=== PATIENT | male | born 1930 | race Caucasian/White ===

== ENCOUNTER 2018-07-19 15:48 | Inpatient (IN) | payer OTHER ==
[~2018-07-19] VITALS: Ht 177.8 cm; Wt 86.2 kg
[2018-07-19 15:50] VITALS: BP 154/65
[2018-07-19 19:16] LABS: ABSOLUTE NEUTROPHILS 4.7 thou/uL (1.4-8.2); BASOPHILS 0.4 % (0.0-2.0); EOSINOPHILS 3.1 % (0.0-3.0); HEMATOCRIT 40.3 % (42.0-52.0); HEMOGLOBIN 13.8 gm/dL (14.0-18.0); LYMPHOCYTES 17.1 % (24.0-44.0); MCH 31.6 pg (26.0-34.0); MCHC 34.2 g/dL (28.0-37.0); MCV 92.5 fL (80.0-100.0); MONOCYTES 10.8 % (1.0-8.0); PLATELET COUNT 210 thou/uL (150-400); POLYS 68.6 % (36.0-66.0); RBC 4.36 mil/uL (4.50-6.00); RDW 13.7 % (10.5-14.5); WBC 6.9 thou/uL (4.0-11.0)
[2018-07-19 19:24] LABS: CALCIUM 9.8 mg/dL (8.5-10.1); CREATININE 1.1 mg/dL (0.7-1.3); POTASSIUM 3.4 mmol/L (3.5-5.1)
[2018-07-19 19:29] LABS: ALBUMIN 3.9 g/dL (3.4-5.0); APTT 27.8 Seconds (24.5-32.8); PROTIME 10.7 Seconds (9.3-11.4); TOTAL PROTEIN 7.7 g/dL (6.4-8.2)
[2018-07-19 20:33] VITALS: BP 136/61
[2018-07-19 20:50] VITALS: BP 139/71
[2018-07-19 21:20] VITALS: BP 184/76
[2018-07-20 00:50] VITALS: BP 155/75
[2018-07-20 04:32] VITALS: BP 139/65
[2018-07-20 08:24] VITALS: BP 119/63
--- NOTE | 2018-07-20 08:24 | EKG ---
[address] [address] ELECTROCARDIOGRAM REPORT Name: EDIE PORTER Room #: 458-P ADM IN M.R.#: [id number] ������������������ Admission: 07/19/18 ������������������ Attend Phys: Belen Gillis Discharge: ������������������ Date of : 31 Report #: [id number] ����������������������������������������������������������������� [id number] THIS REPORT FOR: //name// [facility] ED Test Date: 2018-07-19 Test Time: 19:15:20 Pat Name: EDIE PORTER Department: Room: 458 Gender: M Recruitment Consultant: rizwana : 1930 Requested By: Jie Bah Order Number: [id number] MD: Masoud Noble Measurements Intervals Ballinger Rate: 60 P: -15 SD: 119 QRS: -37 QRSD: 108 T: 42 QT: 459 QTc: 459 Interpretive Statements Sinus rhythm with PACs Atrial premature complex Borderline short SD interval Compared to ECG 11/07/2005 11:44:14 Electronically Signed On 07-20-2018 8:24:20 CDT by Masoud Noble [email or web address] ��������������������������������������������� <ELECTRONICALLY SIGNED> ���������������������������������������� By: Masoud Noble MD ��������������������������������������������� 07/20/1824 14 14 Masoud Noble MD /EPI
--- NOTE | 2018-07-20 12:21 | NUR ---
PT ADMITTED RELATED TO RT HIP GR. TROCH FX WITH POSSIBLE FEM NECK FX. CM REVIEWED CHART AND SPOKE WITH CARE TEAM. CM MET WITH PT AT BEDSIDE THIS DAY. PT IS A&O X4. CM ROLE INTRODUCED. PT INDICATED HE LIVES IN A HOUSE WITH HIS SPOUSE WITH 2 STEPS TO ENTER AND 15 STEPS INSIDE. 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 PT INDICATED NO DME OR HH HX. PT INDICATED HE HAD BEEN FOR OP PT IN THE PAST. PT AWAITING ORTHO EVAL TO DETERMINE PLAN OF CARE. CM TO FOLLOW INDICATED WITH DC PLANNING.
--- NOTE | 2018-07-20 13:32 | H ---
[facility] [place] [address] HISTORY AND PHYSICAL Name: CHARLOTTEIRIZARRY R Room #: 458-P ADM IN M.R.#: [id number] Admission: 07/19/18 ������������������ Attend Phys: Belen Gillis Discharge: ������������������ Date of : 31 Report #: [id number] THIS REPORT FOR: //name// CC: Moo Trevino DATE OF SERVICE: 07/19/2018 CHIEF COMPLAINT: Fall and right hip pain. HISTORY OF PRESENT ILLNESS: The patient is an 87-year-old gentleman who was brought to the Emergency Room after an accidental fall yesterday afternoon. He apparently was walking out of his office in a hurry when he tripped on a rug and landed on his right side. He required help to get up and was unable to walk or stand due to pain. There was also report of a fall 2 weeks ago while he was doing some housework, but he treated that symptomatically with a heating pad. X-rays through the ER revealed a right greater trochanter femur fracture with some extension into the intertrochanteric region of the proximal femur. PAST MEDICAL HISTORY: None. PAST SURGICAL HISTORY: None. FAMILY HISTORY: Noncontributory. SOCIAL HISTORY: Prior tobacco use. He does admit to drinking a few ounces of alcohol daily. ALLERGIES: None. MEDICATIONS: None. REVIEW OF SYSTEMS: Denies headache, chest pain, shortness of breath, abdominal pain, nausea, vomiting, diarrhea, constipation, dysuria. PHYSICAL EXAMINATION: VITAL SIGNS: Temperature 36.6, pulse 69, respirations 16, blood pressure 119/63, O2 sat 97% on 2 liters. GENERAL: He is awake and alert, in no distress. LUNGS: Clear. HEART: Regular. ABDOMEN: Soft, normoactive bowel sounds. EXTREMITIES: No edema. There is no bruising at the right hip. He has pain with movement. NEUROLOGIC: Cranial nerves intact. Speech is fluent. He is alert and oriented. [facility] [address] [place] [address] HISTORY AND PHYSICAL Name: EDIE PORTER Room #: 458-P [facility] IN ..#: [id number] Admission: 07/19/18 ������������������ Attend Phys: Belen Gillis Discharge: ������������������ Date of : 31 Report #: [id number] X-ray of the pelvis reveals a nondisplaced fracture through the right greater trochanter of the proximal femur with extension into the base of the femoral neck. Chest x-ray and lab work were unremarkable. ASSESSMENT: 1. Right greater trochanter femur fracture with extension into the femoral neck. 2. Accidental fall. 3. Inability to ambulate. PLAN: Consult orthopedic service to review his status and see if this can be managed nonoperatively. He may require some rehabilitation efforts as well. ��������������������������������������������� <ELECTRONICALLY SIGNED> ���������������������������������������� By: Reginaldo Prakash MD ��������������������������������������������� 07/20/18 1332 1057 [id number] Reginaldo Prakash MD /anel
--- NOTE | 2018-07-20 15:45 | NUR ---
PT WAS SEEN BY [facility], AND SKILLED CARE FOLLOWING ORTHO AND SURGICAL INTERVENTIONS WAS RECOMMENDED. THANK YOU FOR THIS REFERRAL.
[2018-07-20 16:08] VITALS: BP 114/56
--- NOTE | 2018-07-20 16:16 | NUR ---
ASSUMED CARE OF PT APPROX 0715, A&0X4, INITIALLY WANTED TO BE D/C'D SO THAT HE CAN KEEP UP WITH HIS APPTS, SPOUSE HAS MRI SCHEDULED FOR MONDAY, ETC. THEN AFTER MRI AND PT SASCHA HAS BECOME ANXIOUS ABOUT ENSURING DR TORRES KNOWS HE WANTS SURGERY YET ALSO WANTS THE PHYSICIAN TO CALL HIM ON HIS ROOM PHONE NUMBER. LEFT A MESSAGE W/SASKIA, PHYSICIAN'S NURSE, WITH THIS INFORMATION AT 1615. FAMILY AT BEDSIDE, DAUGHTER WROTE PT'S SON'S TELE NUMBER ON BOARD (HE'S A PHYSICIAN), SHE ASKED THAT DR. TORRES CALL HIM YET THE PT IS ADAMANT THAT HE BE CALLED HIMSELF. FED ALL AND ENCOURAGED THEM TO USE CALL LIGHT FOR ANY NEEDS
[2018-07-20 20:34] VITALS: BP 120/60
--- NOTE | 2018-07-21 02:36 | NUR ---
PROGRESS PT PROGRESSING, HAD A CHANGE OF MIND AND WANTS TO HAVE SURGERY. FAMILY AT BEDSIDE SON IS A PHYSICIAN AT THE [employer] AND WANTED TO SPEAK TO . I CALLED ANSWERING SERVICE REQUESTING A RETURN CALL TO PT'S SON DR. CHARAN PORTER. CALL PLACED ORDER FROM TO WRITE FOR CONSENT AND MAKE PT NPO AFTER MN.
[2018-07-21 04:33] VITALS: BP 129/66
--- NOTE | 2018-07-21 06:42 | NUR ---
PATIENT SLEPT PART OF THE NIGHT. PATIENT WAS NPO SINCE MN FOR POSSIBLE SURGERY. PT ORDERED. NO OTHER CONCERNS FOR THIS PATIENT AT THIS MOMENT. PATIENT IS PROGRESSING TOWARDS DC GOALS.
[2018-07-21 07:20] VITALS: BP 163/43
[2018-07-21 07:30] VITALS: BP 140/75
--- NOTE | 2018-07-21 07:37 | HC ---
[facility] [place] [address] CONSULTATION Name: CHARLOTTEIRIZARRY R Room #: 458-P ADM IN M.R.#: [id number] Admission: 07/19/18 ������������������ Attend Phys: Belen Gillis Discharge: ������������������ Date of : 31 Report #: [id number] THIS REPORT FOR: //name// CC: Moo Trevino DATE OF SERVICE: 07/20/2018 CHIEF COMPLAINT: Right hip fracture. 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 He stumbled and fell injuring the right hip. He was unable to ambulate and was evaluated here in the Emergency Department. X-rays reveal a rather minimal slightly displaced fracture of the right greater trochanter. There appears to be a nondisplaced crack extending obliquely across the intertrochanteric region as well. At the time of my evaluation, he is alert and oriented and seems to understand the situation well. He denies any other areas of discomfort. He notes the right hip is not particularly uncomfortable either to palpation or movement while he is resting in bed. On objective exam, he does have good range of motion of the hip in flexion, extension and rotation. He is able to lift the limb up off the bed. There is no crepitus and no shortening and no deformity and rather minimal discomfort. Distal neurologic and vascular status appeared to be normal. There are no other apparent injuries. Initial x-rays of the hip reveal a slightly displaced fracture of the tip of the greater trochanter and a questionable nondisplaced crack across the intertrochanteric region. I have discussed with the patient these findings noting that surgical stabilization may be the best option to avoid fracture displacement and allow rapid recovery. He was quite concerned with this and stated his hip is really not hurting much and preferred to avoid any surgery if at all possible. Given this, he elected to decline any option for surgery, at least for today, instead therefore, I have suggested going ahead with an MRI evaluation to further characterize the fracture and also a trial of physical therapy to see how he does with walker ambulation. At the time of this dictation, the MRI has been performed, and I have reviewed the images, but there is no radiology report available yet. It does appear that there is a fracture across the intertrochanteric region extending toward the lesser trochanter, but without a complete fracture and without any displacement. The greater trochanter fracture slightly displaced. The rest of the bony architecture looks okay. We have not yet tried therapy, but we will plan to get him up with a walker and at least [address] [address] CONSULTATION Name: EDIE PORTER Room #: 458-P [facility] IN M.R.#: [id number] Admission: 07/19/18 ������������������ Attend Phys: Belen Gillis Discharge: ������������������ Date of : 31 Report #: [id number] attempt transfers or ambulation with limited weightbearing today. Pending his progress, we may allow continued nonsurgical management with careful protection over the coming 6 weeks. He understands that there is a chance the fracture will displace, in which case we will be back with surgery at that point. He still understands that prophylactic surgical fixation of the current nondisplaced fracture would be a reasonable option. He seems reluctant to consider surgery if it can be avoided. Pending his progress, we could reconsider surgery either tomorrow or on Monday. I will plan to follow up and check in on him over the weekend after we see how he does with physical therapy. ��������������������������������������������� <ELECTRONICALLY SIGNED> ���������������������������������������� By: Reginaldo Trevino MD ��������������������������������������������� 07/21/18 0737 1008 0201 Reginaldo Trevino MD /nt
[2018-07-21 08:58] LABS: HEMATOCRIT 40.1 % (42.0-52.0); HEMOGLOBIN 13.5 gm/dL (14.0-18.0)
[2018-07-21 09:04] LABS: CALCIUM 9.4 mg/dL (8.5-10.1); CREATININE 0.9 mg/dL (0.7-1.3); POTASSIUM 3.5 mmol/L (3.5-5.1)
--- NOTE | 2018-07-21 09:45 | NUR ---
Assumed care of patient at 0700. Seen by Dr. Trevino, plans for right hip surgery today at 0930. Informed consent obtained, updated family via phone. Saline locked IV and down to pre-op at 0945. Glasses and gold necklace remain in room.
[2018-07-21 12:30] VITALS: BP 151/78
[2018-07-21 16:02] VITALS: BP 109/64
[2018-07-21 19:20] VITALS: BP 163/43
[2018-07-22] VITALS (7 sets, daily range): BP systolic 106–155; BP diastolic 45–58
[2018-07-22 04:56] LABS: HEMATOCRIT 36.7 % (42.0-52.0); HEMOGLOBIN 12.5 gm/dL (14.0-18.0); MCH 31.6 pg (26.0-34.0); MCHC 34.2 g/dL (28.0-37.0); MCV 92.5 fL (80.0-100.0); RBC 3.97 mil/uL (4.50-6.00); RDW 13.3 % (10.5-14.5); WBC 8.7 thou/uL (4.0-11.0)
[2018-07-22 05:18] LABS: CALCIUM 8.9 mg/dL (8.5-10.1); POTASSIUM 3.4 mmol/L (3.5-5.1)
--- NOTE | 2018-07-22 05:42 | NUR ---
PT IS POST OF DAY 1. DURING THIS SHIFT, PATIENT WAS ALERT AND ORIENTED TO SELF. PATIENT WAS EASILY CONFUSED AND FORGETFUL. PT PULLED OUT EKG LEADS SEVERAL TIMES DURING THE SHIFT AND PULLED OUT HIS PIV ONCE. CONSIDER A SITTER FOR THIS PT. SURGICAL SITE IS NOT SATURATED AND PT DOES NOT COMPLAIN ABOUT PAIN UNLESS REPOSITIONED. PATIENT IS PROGRESSING TOWARDS DC GOALS.
--- NOTE | 2018-07-22 07:36 | O ---
[facility] [place] [address] OPERATIVE REPORT Name: CHARLOTTEIRIZARRY R Room #: 452-P ADM IN M.R.#: [id number] Admission: 07/19/18 ������������������ Attend Phys: Belen Gillis Discharge: ������������������ Date of : 31 Report #: [id number] THIS REPORT FOR: //name// CC: Moo Trevino DATE OF SERVICE: 07/21/2018 PREOPERATIVE DIAGNOSIS: Right proximal femoral intertrochanteric fracture. POSTOPERATIVE DIAGNOSIS: Right proximal femoral intertrochanteric fracture. PROCEDURE: Right proximal femoral fracture fixation with TFN nail device. SURGEON: Reginaldo Trevino MD INDICATIONS: This still alert, active 87-year-old gentleman fell injuring the right hip. X-rays reveal a fracture extending across from the greater trochanter almost through the lesser trochanter, but without significant displacement. He is having discomfort and difficulty ambulating. The patient and family are concerned the fracture might displace with nonsurgical management. His son is a pulmonary physician and has a good understanding of the situation. They have elected to go ahead with surgical repair using a TFN nail fixation device. DESCRIPTION OF PROCEDURE: The patient was taken to the operating room where he was placed under general anesthesia. Prophylactic intravenous antibiotics were administered. He was positioned on the fracture table with gentle longitudinal traction allowing good visualization of the right proximal femur. The lateral aspect of the hip and thigh were meticulously prepped and draped. A small skin incision was made just proximal to the greater trochanter. A guidewire was passed through the trochanter into the canal. The trochanter was opened with a small reamer and a Synthes TFN nail using an 11 mm diameter x 170 mm length nail was selected, this was impacted to an appropriate position. A lateral guidewire was then passed up into the low femoral neck and head and confirmed with C-arm. A 100 mm length helical blade was then impacted into the femoral neck and head with excellent purchase. The proximal locking screw was tightened down. The distal locking screw was placed using the outrigger guide. It also seemed to have excellent purchase. AP and lateral views demonstrated good position of the addie and helical blade well positioned in the femoral neck and head. The fracture did not seem to displace in any fashion during the procedure. The wounds were then irrigated and closed using Monocryl and skin oneal. A [address] [address] OPERATIVE REPORT Name: EDIE PORTER Room #: 452-P [facility] IN .R#: [id number] Admission: 07/19/18 ������������������ Attend Phys: Belen Gillis Discharge: ������������������ Date of : 31 Report #: [id number] sterile dressing was applied. The patient was awakened and returned to the recovery room in good condition. ��������������������������������������������� <ELECTRONICALLY SIGNED> ���������������������������������������� By: Reginaldo Trevino MD ��������������������������������������������� 07/22/18 0736 1045 1256 Reginaldo Trevino MD /anel
--- NOTE | 2018-07-22 19:02 | NUR ---
PT VS STABLE THROUGHOUT SHIFT. PT WAS ALERT AND ORIENTED X4 THROUGHOUT MORINING AND AFTERNOON. AT ONSET OF LATE AFTERNOON SHOWED SIGNS OF INCREASING CONFUSION BUT STILL FOLLOWED COMMANDS. PT UP WITH PT THIS MORNING WHICH HE TOLERATED WELL AND PT UP TO CHAIR THROUGH MOST OF SHIFT. PT TOLERATING DIET WELL. PT D/O PAIN WHICH WAS TREATED WITH MEDICATION SUCCESSFULLY. PT BACK TO BED AT SHIFT CHANGE. PT HAD FEVER IN AFTERNOON (100.2), ACETAMINOPHEN BROUGHT DOWN TO 97.7. FAMILY IN TO VISIT, PT RESTING COMFORTABLY.
--- NOTE | 2018-07-23 03:31 | NUR ---
PATIENT IS POST OP DAY 2. PATIENT IS ALERT BUT ONLY ORIENTED TO SELF. PT LESS AGITATED THIS SHIFT. SURGICAL SITE IS NOT SATURATED AND PATIENT DOES NOT COMPLAIN ABOUT PAIN UNLESS MOVED. PATIENT IS PROGRESSING TOWARDS DISCHARGE GOALS.
[2018-07-23 04:38] VITALS: BP 134/74
[2018-07-23 08:00] VITALS: BP 117/56
[2018-07-23 11:37] VITALS: BP 117/56
[2018-07-23 15:00] VITALS: BP 104/51
[2018-07-23 19:16] VITALS: BP 117/63
--- NOTE | 2018-07-23 19:39 | NUR ---
ASSUMED CARE 0700.A/OX4, PAIN MANAGED WITH MEDICATIONS, UP WITH ASSISTX1 WITH WALKER GAIT BELT. GREENBERG REMOVED. NO BM AT THIS TIME. PLANS TO DC TO REHAB POSSIBLE TOMORROW. FALL PRECAUTIONS IN PLACE. CALL LIGHT IN REACH.
[2018-07-24 05:09] LABS: HEMATOCRIT 33.9 % (42.0-52.0); HEMOGLOBIN 11.6 gm/dL (14.0-18.0); MCH 31.5 pg (26.0-34.0); MCHC 34.2 g/dL (28.0-37.0); MCV 92.3 fL (80.0-100.0); RBC 3.68 mil/uL (4.50-6.00); RDW 13.6 % (10.5-14.5); WBC 7.5 thou/uL (4.0-11.0)
[2018-07-24 05:11] VITALS: BP 124/68
--- NOTE | 2018-07-24 05:11 | NUR ---
THE NIGHT PROGRESSED, PATIENT GOT CONFUSED. THIS SEEMS TO BE A TREND WITH MR. PORTER. PATIENT DID NOT COMPLAIN ABOUT ANY PAIN AND WAS ABLE TO SLEEP PART OF THE NIGHT. PT WAS NOT AGITATED THIS SHIFT. PT IS AWAITING PLACEMENT IN REHAB. PT IS PROGRESSING TOWARDS DC GOALS.
[2018-07-24 05:20] LABS: CALCIUM 8.7 mg/dL (8.5-10.1); POTASSIUM 3.8 mmol/L (3.5-5.1)
[2018-07-24 07:22] VITALS: BP 125/62
[2018-07-24] MEDS ORDERED: ENOXAPARIN30 MG/0.1 SUBQ (10:01)
[2018-07-24] MEDS ORDERED: HYDROCODONE-AP1 EAC6 PO (10:02)
--- NOTE | 2018-07-24 14:30 | NUR ---
city planner sent snf referral to [facility], patient likely to dc today. MIRANDA called [facility] and spoke with Cat, she said she won't get authorization today for sure, she also said their fax is down and to fax to [phone]. MIRANDA left her phone number for Cat if fax does not arrive to call. Cat said she will call JAGRUTI here if she has any questions.
--- NOTE | 2018-07-24 14:44 | NUR ---
CM FOLLOWED UP WITH PT AND HIS DTR APARNA. THEY INDICATED THAT THEY WERE INTERESTED IN REFERRAL BEING SENT TO [facility] FOR REVIEW FOR POSSIBLE ADMISSION. REFERRAL WAS SENT AND THEY SUBMITTED FOR INSURANCE AUTH. CM TO FOLLOW INDICATED WITH DC PLANNING.
[2018-07-24 15:26] VITALS: BP 123/60
[2018-07-24 19:05] VITALS: BP 123/59
--- NOTE | 2018-07-24 19:39 | NUR ---
pt stable throughout shift. worked with pt, possible discharge tomorrow.
[2018-07-25 04:02] VITALS: BP 140/64
--- NOTE | 2018-07-25 07:32 | NUR ---
Assumed care at 1845. Pt resting in bed. VSS. A0X4. Dressing Intact with a little saturation of blood. Pt has been ambulating to bedside commode with no signficant pain and X1 assist. No identified needs at the moment. Call light within reach. Will continue to monitor.
[2018-07-25 07:50] VITALS: BP 131/73
--- NOTE | 2018-07-25 10:56 | NUR ---
FA[place]ED REFERRAL TO [facility] [place] [facility] IN ADM. TO REVIEW REFERRAL ANTICIPATE DC SOON. DCP TO FOLLOW.
--- NOTE | 2018-07-25 13:32 | NUR ---
PT'S SPOUSE CALLED CM AND INDICATED THAT SHE HAD TOURED [facility] AND THAT SHE DIDN'T WANT PT GOING THERE. SHE INDICATED SHE WAS INTERESTED IN [facility]. REFERRAL WAS SENT FOR REVIEW.
[2018-07-25 14:17] VITALS: BP 102/54
--- NOTE | 2018-07-25 16:51 | NUR ---
PT A&OX4, VSS AND NO SIGNS OF DISTRESS. PT HAS ASSISTED IN HIS THERAPY WITH PHYSICAL THERAPY. PT HAS HAD PAIN IN RIGHT HIP AND IS BEING MANAGED WITH [facility]. THE PLAN IS TO PLACE PT IN REHAB FACILITY. FALL PRECAUTIONS IN PLACE, BED IN LOWEST POSITION, YELLOW SOCKS AND WRIST BAND ON, CALL LIGHT WITHIN REACH. WILL CONTINUE TO MONITOR.
[2018-07-25 19:17] VITALS: BP 137/83
--- NOTE | 2018-07-25 22:47 | NUR ---
Assumed care at 1845. Pt resting in bed. VSS. AOX4. Only has pain on right hip when ambulating. Worked well with PT. Dressing CDI. No signs of distress. Call light within reach. Bed in lowest position. Will continue to monitor.
[2018-07-26 03:28] VITALS: BP 139/78
--- NOTE | 2018-07-26 05:36 | NUR ---
Pt ripped off half of his surgical dressing. Replaced it with a new dressing. No identified needs at the moment. Will continue to monitor.
[2018-07-26 08:12] VITALS: BP 128/63
--- NOTE | 2018-07-26 10:08 | NUR ---
DISCHARGE PLANNING. PATIENT IS READY FOR DISCHARGE. POST ACUTE CARE RECOMMENDED AT DISCHARGE. UPDATED CLINICAL INFORMATION FAXED TO [facility], FOR INSURANCE AUTH PROCESS. [facility] NOTIFIED AND WILL CONTACT ONCE AUTH OBTAINED. FOLLOWING TO ASSIST WITH DISCHARGE NEEDS.
--- NOTE | 2018-07-26 14:40 | NUR ---
PT A&OX4, VSS, NO SIGNS OF DISTRESS. PAIN IN RIGHT HIP AND MANAGED WITH [facility]. PT TO DISCHARGE TO [facility] FOR REHAB. REPORT CALLED INTO [facility] AT 1410. PT HAS ALL BELONGINGS WITH HIM AND PRESCIPTION FOR [facility] BEING SENT WITH DISCHARGE PACKET TO FACILITY. PT HAS HAD PT AND OT TODAY. DRESSING ON RIGHT HIP INTACT AND NO DRAINAGE.
== END 2018-07-26 16:41 | DRG 482 ==
LOC: ER 15:48 → 4W 19:43 → EROBS 19:43 → 4W 20:53
PROVIDERS: Internal Medicine Geriatric Medicine; Orthopaedic Surgery; Physician Assistant; ADMIT Internal Medicine
PROC: 0QS604Z Reposition Right Upper Femur with Internal Fixation Device, Open Approach (ICD-10-PCS; principal; 2018-07-21)
DX: S72.141A Displaced intertrochanteric fracture of right femur, initial encounter for closed fracture (principal); R26.2 Difficulty in walking, not elsewhere classified; W01.0XXA Fall on same level from slipping, tripping and stumbling without subsequent striking against object, initial encounter; Z98.42 Cataract extraction status, left eye; Z98.41 Cataract extraction status, right eye; Z87.891 Personal history of nicotine dependence; Y93.01 Activity, walking, marching and hiking; Y92.89 Other specified places as the place of occurrence of the external cause; Y99.8 Other external cause status; Z79.899 Other long term (current) drug therapy
CPT/HCPCS: 10040; 10045; 50010; 50101; 50386; 51412; 51538; 51817; 52145; 52146; 52304; 56525; 57092; 62110; 62900; 70005

== ENCOUNTER → 2020-06-24 | Outpatient (CLI) | payer OTHER ==
[~2020-06-24] MED LIST: ENOXAPARIN30 MG/0.1 SUBQ; HYDROCODONE-AP1 EAC6 PO
== END ==
LOC: RAD 16:50
PROVIDERS: ATTEND Internal Medicine
DX: M16.0 Bilateral primary osteoarthritis of hip (principal); M47.816 Spondylosis without myelopathy or radiculopathy, lumbar region